=== PATIENT | female | born 1965 | race Caucasian/White ===

== ENCOUNTER → 2017-05-24 | Outpatient (CLI) | payer MEDICARE ==
[~2017-05-24] MED LIST: ACET325T14 PO; ALBU8.5H5 INH; ALPR0.5T6 PO; ASPI-621 PO; CYCL-259 PO; DOCU-131 PO; DOCU100C24 PO; FAMO-79 PO; FOLI-17 PO; GABA300C PO; GABA300C10 PO; GABA600T2 PO; LEVE500T53 PO; LEVO50TA PO; LORA10TA3 PO; MAGN400T7 PO; METH4TAB2 PO; MOME220A9 INH; NAPR250T PO; NICO-487 TD; OXYC-302 PO; OXYC10TA6 PO; OXYC20TA2 PO; OXYC5TAB3 PO; PANT40TA5 PO; PRAV20TA2 PO; PRAV40TA2 PO; QUET200T4 PO; SERT100T5 PO; SERT50TA5 PO; SULF1TAB24 PO; THIA100T6 PO; TRAZ100T15 PO
== END | disposition home or self-care (01) ==
LOC: ROC 07:31
PROVIDERS: ATTEND Radiology Radiation Oncology
DX: D05.91 Unspecified type of carcinoma in situ of right breast (principal); G89.3 Neoplasm related pain (acute) (chronic)
CPT/HCPCS: G0463

== ENCOUNTER → 2017-07-01 | Outpatient (CLI) | payer MEDICARE | END | disposition home or self-care (01) | LOC: CFH 10:48 | PROVIDERS: ATTEND Radiology Radiation Oncology | DX: D05.11 Intraductal carcinoma in situ of right breast (principal); N64.4 Mastodynia; Z92.3 Personal history of irradiation; Z85.3 Personal history of malignant neoplasm of breast | CPT/HCPCS: 76642; 77066 ==

== ENCOUNTER → 2017-11-29 | Outpatient (CLI) | payer MEDICARE, MEDICAID ==
[~2017-11-29] MED LIST changes: -THIA100T6 PO; +THIA100T67 PO; +TRAZ-136 PO; +TRAZ-137 PO; -TRAZ100T15 PO
[2017-11-29 09:18] LABS: BASOPHILS # (AUTO) 0.06 x10^3/uL (0-0.1); BASOPHILS % (AUTO) 1 % (0-1); EOSINOPHILS # (AUTO) 0.05 x10^3/uL (0-0.4); EOSINOPHILS % (AUTO) 1 % (1-7); LYMPHOCYTES # (AUTO) 2.31 x10^3/uL (1-3.4); LYMPHOCYTES % (AUTO) 24 % (22-44); MD NO; MEAN CORPUSCULAR HEMOGLOBIN 29.4 pg (27.0-34.8); MEAN CORPUSCULAR HGB CONC 32.8 g/dL (32.4-35.8); MEAN CORPUSCULAR VOLUME 89.5 fL (80-100); MEAN PLATELET VOLUME 6.9 fL (7.4-10.4); MONOCYTES # (AUTO) 0.73 x10^3/uL (0.2-0.8); MONOCYTES % (AUTO) 8 % (2-9); NEUTROPHILS # (AUTO) 6.48 x10^3/uL (1.8-6.8); NEUTROPHILS % (AUTO) 67 % (42-75); PLATELET COUNT 451 x10^3/uL (130-400); RED BLOOD COUNT 4.45 x10^6/uL (3.82-5.3); RED CELL DISTRIBUTION WIDTH 16.2 % (9.6-15.2)
[2017-11-29 09:24] LABS: HCT (SEDRATE) 39.9 % (34.6-47.8)
== END | disposition home or self-care (01) ==
LOC: LAB 08:55
PROVIDERS: ATTEND Orthopaedic Surgery
DX: M25.552 Pain in left hip (principal); I10 Essential (primary) hypertension; J44.9 Chronic obstructive pulmonary disease, unspecified; E78.5 Hyperlipidemia, unspecified; F32.9 Major depressive disorder, single episode, unspecified; I25.2 Old myocardial infarction; Z86.73 Personal history of transient ischemic attack (TIA), and cerebral infarction without residual deficits
CPT/HCPCS: 36415; 85025; 85651; 86140

== ENCOUNTER 2017-12-03 12:26 | Inpatient (IN) | payer MEDICARE, MEDICAID ==
[~2017-12-03] VITALS: Ht 177.8 cm; Wt 76.7 kg
[2017-12-03] MEDS ORDERED: SODIUM CHLORIDE FLUSH 10ML SYR IVF ONE (12:30)
[2017-12-03 12:56] LABS: BASOPHILS # (AUTO) 0.06 x10^3/uL (0-0.1); BASOPHILS % (AUTO) 1 % (0-1); EOSINOPHILS # (AUTO) 0.23 x10^3/uL (0-0.4); EOSINOPHILS % (AUTO) 3 % (1-7); LYMPHOCYTES # (AUTO) 1.93 x10^3/uL (1-3.4); LYMPHOCYTES % (AUTO) 24 % (22-44); MD NO; MEAN CORPUSCULAR HEMOGLOBIN 29.8 pg (27.0-34.8); MEAN CORPUSCULAR VOLUME 90.1 fL (80-100); MONOCYTES # (AUTO) 0.44 x10^3/uL (0.2-0.8); MONOCYTES % (AUTO) 5 % (2-9); NEUTROPHILS # (AUTO) 5.52 x10^3/uL (1.8-6.8); NEUTROPHILS % (AUTO) 67 % (42-75); PLATELET COUNT 484 x10^3/uL (130-400); RED BLOOD COUNT 4.57 x10^6/uL (3.82-5.3); RED CELL DISTRIBUTION WIDTH 16.4 % (9.6-15.2)
[2017-12-03] MEDS ORDERED: PLEASE ENTER HEIGHT AND WEIGHT MC SCH (13:00)
[2017-12-03 13:08] LABS: INTERNATIONAL NORMALIZED RATIO 1.1 (0.93-1.1); PROTHROMBIN TIME 11.3 Seconds (9.6-11.5)
[2017-12-03 13:10] LABS: ALANINE AMINOTRANSFERASE 19 U/L (12-78); ALBUMIN 3.7 g/dL (3.4-5.0); ANION GAP 7 mmol/L (5-15); CALCIUM 8.7 mg/dL (8.5-10.1); CHLORIDE 110 mmol/L (98-107); CREATININE 0.71 mg/dL (0.55-1.02); SALICYLATE LEVEL 4.9 mg/dL (2.8-20.0)
[2017-12-03 13:15] LABS: ALKALINE PHOSPHATASE 78 U/L (45-117); BILIRUBIN,TOTAL 0.9 mg/dL (0.2-1.0); TOTAL PROTEIN 7.4 g/dL (6.4-8.2); TROPONIN I < 0.015 ng/mL (0.000-0.045)
[2017-12-03 13:18] LABS: ACETAMINOPHEN < 2 mcg/mL (10-30)
[2017-12-03] MEDS ORDERED: ETOMIDATE 20 MG/10 ML IV ONE (13:30)
[2017-12-03] MEDS ORDERED: SUCCINYLCHOLINE 20 MG/ML, 10ML IVPush ONE (13:30)
[2017-12-03] MEDS: PROPOFOL 100 ML IV PRN ×2 (13:40→19:46)
[2017-12-03] MEDS ORDERED: OMNIPAQUE 350 MG/ML, 100ML BOTTLE ONE (14:14)
[2017-12-03] MEDS ORDERED: MIDAZOLAM 1 MG/ML, 2ML IVPush ONE (14:30)
[2017-12-03] MEDS ORDERED: VECURONIUM 10 MG IVPush ONE (14:30)
[2017-12-03] MEDS: SODIUM CHLORIDE 0.9% 1,000 ML IV SCH (14:39)
[2017-12-03] MEDS ORDERED: MIDAZOLAM HCL 50 MG in SODIUM CHLORIDE 0.9% 240 ML IV PRN (14:41)
[2017-12-03] MEDS ORDERED: SODIUM CHLORIDE 0.9% 1,000 ML IV ONE (14:55)
[2017-12-03] MEDS ORDERED: BISACODYL 10 MG SUPP PR PRN ×2 (15:00→22:30)
[2017-12-03] MEDS ORDERED: LABETALOL 5MG/ML, 20ML IV PRN (15:00)
[2017-12-03] MEDS ORDERED: LORazepam 2 MG/ML, 1ML IVPush PRN (15:00)
[2017-12-03] MEDS ORDERED: ENALAPRILAT 1.25 MG/ML, 2ML IV PRN (15:00)
[2017-12-03] MEDS ORDERED: SENNA/DOCUSATE TABLET PO PRN (15:00)
[2017-12-03] MEDS ORDERED: DOCUSATE 100 MG CAPSULE PO PRN (15:00)
[2017-12-03] MEDS ORDERED: ONDANSETRON 2MG/ML, 2ML IVPush PRN (15:00)
[2017-12-03] MEDS ORDERED: POLYETHYLENE GLYCOL 17 GM PACKET PO PRN (15:00)
[2017-12-03] MEDS ORDERED: SODIUM CHLORIDE FLUSH 10ML SYR IVF PRN (15:00)
[2017-12-03] MEDS ORDERED: PROPOFOL 100 ML IV ONE (16:07)
[2017-12-03 16:23] LABS: MICROSCOPIC NOT IND
[2017-12-03 16:31] LABS: AMPHETAMINE SCREEN, URINE Negative (Negative); BARBITURATE SCREEN, URINE Negative (Negative); BENZODIAZEPINE SCREEN, URINE Positive (Negative); CANNABINOID SCREEN, URINE Negative (Negative); COCAINE SCREEN, URINE Negative (Negative); CULTURE INDICATED? NO; METHADONE SCREEN, URINE Negative (Negative); OPIATE SCREEN, URINE Negative (Negative)
[2017-12-03] MEDS ORDERED: MIDAZOLAM 1 MG/ML, 5ML ONE (17:00)
[2017-12-03] MEDS ORDERED: ETOMIDATE 20 MG/10 ML ONE (17:00)
[2017-12-03] MEDS ORDERED: VECURONIUM 10 MG ONE (17:00)
[2017-12-03] MEDS ORDERED: PROPOFOL 10 MG/ML, 100ML IV ONE (17:00)
[2017-12-03] MEDS ORDERED: SUCCINYLCHOLINE 20 MG/ML, 10ML ONE (17:00)
[2017-12-03] MEDS: THIAMINE 200 MG, FOLIC ACID 1 MG, MVI ADULT 10 ML in SODIUM CHLORIDE 0.9% 1,000 ML IV SCH (17:03)
[2017-12-03] MEDS: ENOXAPARIN 40 MG/0.4 ML SQ SCH (17:52)
[2017-12-03] MEDS: ATORVASTATIN 80 MG TABLET PO SCH (21:13)
[2017-12-03] MEDS ORDERED: LIDOCAINE-MPF 1%, 2ML ENDO PRN (22:30)
[2017-12-03] MEDS: ALBUTEROL/IPRATROPIUM 2.5MG/0.5MG, 3 ML INLINE SCH (22:30)
[2017-12-03] MEDS ORDERED: SENNA/DOCUSATE TABLET NG PRN (22:30)
[2017-12-03] MEDS ORDERED: PHARMACY MAY ADJ FOR RENAL FX MC SCH (22:30)
[2017-12-03] MEDS ORDERED: SENNOSIDES 8.8 MG/5 ML ORAL SOL NG PRN (22:30)
[2017-12-03] MEDS ORDERED: FENTANYL PF 100 MCG/2ML IVPush PRN (22:30)
[2017-12-03] MEDS ORDERED: LACTULOSE 20 GM/30 ML UDC NG PRN (22:30)
[2017-12-04] MEDS: PROPOFOL 100 ML IV PRN ×2 (01:02→06:33)
[2017-12-04] MEDS: SODIUM CHLORIDE 0.9% 1,000 ML IV SCH ×3 (01:03→20:12)
[2017-12-04] MEDS: QUETIAPINE 25MG TABLET PO SCH ×4 (01:07→23:49)
[2017-12-04] MEDS: ALBUTEROL/IPRATROPIUM 2.5MG/0.5MG, 3 ML INLINE SCH ×2 (03:12→06:47)
[2017-12-04 04:00] VITALS: BP 136/82
[2017-12-04 04:51] LABS: ALANINE AMINOTRANSFERASE 18 U/L (12-78); ANION GAP 6 mmol/L (5-15); CHLORIDE 111 mmol/L (98-107)
[2017-12-04 04:56] LABS: BASOPHILS # (AUTO) 0.03 x10^3/uL (0-0.1); BASOPHILS % (AUTO) 0 % (0-1); EOSINOPHILS % (AUTO) 2 % (1-7); LYMPHOCYTES # (AUTO) 1.36 x10^3/uL (1-3.4); LYMPHOCYTES % (AUTO) 14 % (22-44); MD NO; MEAN CORPUSCULAR HGB CONC 33.6 g/dL (32.4-35.8); MEAN CORPUSCULAR VOLUME 89.5 fL (80-100); MEAN PLATELET VOLUME 7.3 fL (7.4-10.4); MONOCYTES # (AUTO) 0.52 x10^3/uL (0.2-0.8); MONOCYTES % (AUTO) 5 % (2-9); NEUTROPHILS # (AUTO) 7.74 x10^3/uL (1.8-6.8); NEUTROPHILS % (AUTO) 79 % (42-75); PLATELET COUNT 358 x10^3/uL (130-400); RED BLOOD COUNT 4.24 x10^6/uL (3.82-5.3); RED CELL DISTRIBUTION WIDTH 16.5 % (9.6-15.2)
[2017-12-04 04:58] LABS: ALKALINE PHOSPHATASE 68 U/L (45-117); BILIRUBIN,TOTAL 0.6 mg/dL (0.2-1.0); CHOL/HDL RATIO 3.1; CHOLESTEROL, TOTAL 175 mg/dL (140-239); CREATININE 0.54 mg/dL (0.55-1.02); HDL CHOL % 32 % (28-40); HDL CHOLESTEROL (DIRECT) 56 mg/dL (40-60); LDL CHOLESTEROL,CALCULATED 71 mg/dL (54-169); TOTAL PROTEIN 6.1 g/dL (6.4-8.2); TRIGLYCERIDES 239 mg/dL (50-200); VLDL CHOLESTEROL 48 mg/dL (0-25)
[2017-12-04 04:59] LABS: LDL/HDL RATIO 1.3 (0.5-3.0)
[2017-12-04 05:32] LABS: HEMOGLOBIN A1C 5.9 % (4.2-6.3)
[2017-12-04] MEDS ORDERED: PLEASE ENTER HEIGHT AND WEIGHT MC SCH (07:00)
[2017-12-04] MEDS: PANTOPROZOLE 40MG TABLET PO SCH (07:30)
[2017-12-04] MEDS ORDERED: ALBUTEROL SULFATE 2.5 MG/3 ML NPPB PRN (10:00)
[2017-12-04] MEDS: PANTOPRAZOLE 40 MG IV IV SCH (10:20)
[2017-12-04] MEDS: MAGNESIUM OXIDE 400 MG TABLET PO SCH (10:20)
[2017-12-04] MEDS: ASPIRIN 81 MG TABLET CHEW PO/NG SCH (10:21)
[2017-12-04] MEDS: LEVOTHYROXINE 50 MCG TABLET PO SCH (10:21)
[2017-12-04] MEDS: SERTRALINE 50MG TABLET PO SCH (10:21)
[2017-12-04] MEDS: THIAMINE 200 MG, FOLIC ACID 1 MG, MVI ADULT 10 ML in SODIUM CHLORIDE 0.9% 1,000 ML IV SCH (10:21)
[2017-12-04] MEDS: QUETIAPINE 200 MG TABLET PO SCH (10:21)
[2017-12-04] MEDS ORDERED: POTASSIUM CHLORIDE 10% 40 MEQ/30 ML UDC PO ONE (10:30)
[2017-12-04] MEDS: LIDODERM 5% PATCH TD PRN ×2 (14:49→20:23)
[2017-12-04] MEDS: ENOXAPARIN 40 MG/0.4 ML SQ SCH (15:46)
[2017-12-04] MEDS: ACETAMINOPHEN 325 MG TABLET PO PRN (15:46)
[2017-12-04] MEDS: ATORVASTATIN 80 MG TABLET PO SCH (20:24)
[2017-12-05 04:00] VITALS: BP 102/68
[2017-12-05 04:19] LABS: BASOPHILS # (AUTO) 0.01 x10^3/uL (0-0.1); BASOPHILS % (AUTO) 0 % (0-1); EOSINOPHILS # (AUTO) 0.18 x10^3/uL (0-0.4); EOSINOPHILS % (AUTO) 1 % (1-7); LYMPHOCYTES # (AUTO) 1.58 x10^3/uL (1-3.4); LYMPHOCYTES % (AUTO) 12 % (22-44); MD NO; MEAN CORPUSCULAR VOLUME 90.8 fL (80-100); MEAN PLATELET VOLUME 7.5 fL (7.4-10.4); MONOCYTES # (AUTO) 0.69 x10^3/uL (0.2-0.8); MONOCYTES % (AUTO) 5 % (2-9); NEUTROPHILS # (AUTO) 10.55 x10^3/uL (1.8-6.8); NEUTROPHILS % (AUTO) 81 % (42-75); PLATELET COUNT 291 x10^3/uL (130-400); RED BLOOD COUNT 3.86 x10^6/uL (3.82-5.3); RED CELL DISTRIBUTION WIDTH 15.7 % (9.6-15.2)
[2017-12-05 04:29] LABS: ALANINE AMINOTRANSFERASE 19 U/L (12-78); ALKALINE PHOSPHATASE 64 U/L (45-117); BILIRUBIN,TOTAL 0.6 mg/dL (0.2-1.0); CREATININE 0.62 mg/dL (0.55-1.02); TOTAL PROTEIN 5.6 g/dL (6.4-8.2)
[2017-12-05 04:39] LABS: CHLORIDE 112 mmol/L (98-107)
[2017-12-05 04:40] LABS: ALBUMIN 2.5 g/dL (3.4-5.0); ANION GAP 8 mmol/L (5-15); CALCIUM 7.7 mg/dL (8.5-10.1)
[2017-12-05] MEDS: SODIUM CHLORIDE 0.9% 1,000 ML IV SCH (05:24)
[2017-12-05] MEDS: QUETIAPINE 25MG TABLET PO SCH (07:30)
[2017-12-05] MEDS: MAGNESIUM OXIDE 400 MG TABLET PO SCH (08:06)
[2017-12-05] MEDS: SERTRALINE 50MG TABLET PO SCH (08:06)
[2017-12-05] MEDS: LEVOTHYROXINE 50 MCG TABLET PO SCH (08:06)
[2017-12-05] MEDS: ACETAMINOPHEN 325 MG TABLET PO PRN (08:06)
[2017-12-05] MEDS: PANTOPROZOLE 40MG TABLET PO SCH (08:06)
[2017-12-05] MEDS: ASPIRIN 81 MG TABLET CHEW PO/NG SCH (08:06)
[2017-12-05] MEDS: PANTOPRAZOLE 40 MG IV IV SCH (08:08)
[2017-12-05] MEDS: QUETIAPINE 200 MG TABLET PO SCH (08:08)
== END 2017-12-05 12:01 | disposition home or self-care (01) | DRG 208 ==
LOC: ED 14:38 → EDIP 14:39 → ED 15:00 → CCU 16:22
PROVIDERS: ADMIT Hospitalist; ATTEND Hospitalist
PROC: 5A1935Z Respiratory Ventilation, Less than 24 Consecutive Hours (ICD-10-PCS; principal; 2017-12-03)
PROC: 0BH17EZ Insertion of Endotracheal Airway into Trachea, Via Natural or Artificial Opening (ICD-10-PCS; 2017-12-03)
DX: J96.00 Acute respiratory failure, unspecified whether with hypoxia or hypercapnia (principal); J69.0 Pneumonitis due to inhalation of food and vomit; G92 Toxic encephalopathy; Z99.11 Dependence on respirator [ventilator] status; I69.354 Hemiplegia and hemiparesis following cerebral infarction affecting left non-dominant side; J98.11 Atelectasis; I25.10 Atherosclerotic heart disease of native coronary artery without angina pectoris; I10 Essential (primary) hypertension; D72.829 Elevated white blood cell count, unspecified; E03.9 Hypothyroidism, unspecified; F32.9 Major depressive disorder, single episode, unspecified; G89.29 Other chronic pain; E78.00 Pure hypercholesterolemia, unspecified; E78.5 Hyperlipidemia, unspecified; J44.9 Chronic obstructive pulmonary disease, unspecified; G40.909 Epilepsy, unspecified, not intractable, without status epilepticus; Z82.49 Family history of ischemic heart disease and other diseases of the circulatory system; Z85.3 Personal history of malignant neoplasm of breast; Z87.01 Personal history of pneumonia (recurrent); I25.2 Old myocardial infarction; Z90.710 Acquired absence of both cervix and uterus; Z90.49 Acquired absence of other specified parts of digestive tract; Z90.89 Acquired absence of other organs
CPT/HCPCS: 31500; 36415; 36600; 70450; 70496; 70498; 70551; 71045; 80047; 80053; 80061; 80307; 80329; 81003; 82140; 82803; 83036; 83735; 84100; 84478; 84484; 85014; 85018; 85025; 85610; 85730; 87070; 87081; 87107; 87205; 93005; 93306; 94002; 94003; 94640; 96374; 96375; 99291; J1650; J2250; J2704; J3411; J7620; Q9967; C9113; G0480; J0330; J7030; J7050

== ENCOUNTER 2017-12-31 17:48 | Emergency (ER) | payer MEDICARE, MEDICAID ==
[~2017-12-31] VITALS: Ht 175.3 cm; Wt 75.0 kg
[~2017-12-31 17:48] MED LIST changes: +DOCU-193 PO; -DOCU100C24 PO
[2017-12-31 18:29] LABS: BASOPHILS # (AUTO) 0.04 x10^3/uL (0-0.1); BASOPHILS % (AUTO) 0 % (0-1); EOSINOPHILS # (AUTO) 0.13 x10^3/uL (0-0.4); EOSINOPHILS % (AUTO) 1 % (1-7); LYMPHOCYTES # (AUTO) 2.19 x10^3/uL (1-3.4); LYMPHOCYTES % (AUTO) 24 % (22-44); MD NO; MEAN CORPUSCULAR HEMOGLOBIN 30.7 pg (27.0-34.8); MEAN CORPUSCULAR HGB CONC 33.3 g/dL (32.4-35.8); MEAN CORPUSCULAR VOLUME 92.1 fL (80-100); MONOCYTES # (AUTO) 0.47 x10^3/uL (0.2-0.8); MONOCYTES % (AUTO) 5 % (2-9); NEUTROPHILS # (AUTO) 6.39 x10^3/uL (1.8-6.8); NEUTROPHILS % (AUTO) 69 % (42-75); PLATELET COUNT 484 x10^3/uL (130-400); RED BLOOD COUNT 4.69 x10^6/uL (3.82-5.3); RED CELL DISTRIBUTION WIDTH 16.5 % (9.6-15.2)
[2017-12-31 18:39] LABS: ALBUMIN 3.8 g/dL (3.4-5.0); ANION GAP 12 mmol/L (5-15); CALCIUM 8.5 mg/dL (8.5-10.1); CHLORIDE 109 mmol/L (98-107); CREATININE 0.75 mg/dL (0.55-1.02)
[2017-12-31 18:43] LABS: TROPONIN I < 0.015 ng/mL (0.000-0.045)
[2017-12-31] MEDS ORDERED: METHOCARBAMOL 750 MG TABLET ONE (19:51)
[2017-12-31] MEDS ORDERED: KETOROLAC 30 MG/1 ML ONE (19:51)
[2017-12-31] MEDS ORDERED: METHOCARBAMOL 750 MG TABLET PO ONE (20:00)
[2017-12-31] MEDS ORDERED: KETOROLAC 30 MG/1 ML IM ONE (20:00)
[2017-12-31 21:42] LABS: MICROSCOPIC NOT IND
[2017-12-31 21:46] LABS: CULTURE INDICATED? NO
[2017-12-31 22:37] VITALS: BP 129/82
== END 2017-12-31 22:40 | disposition home or self-care (01) ==
LOC: ED 22:08
DX: M51.26 Other intervertebral disc displacement, lumbar region (principal); J44.9 Chronic obstructive pulmonary disease, unspecified; G40.909 Epilepsy, unspecified, not intractable, without status epilepticus; E03.9 Hypothyroidism, unspecified; E78.00 Pure hypercholesterolemia, unspecified; E78.5 Hyperlipidemia, unspecified; I10 Essential (primary) hypertension; G43.909 Migraine, unspecified, not intractable, without status migrainosus; I25.2 Old myocardial infarction; Z90.49 Acquired absence of other specified parts of digestive tract; Z86.73 Personal history of transient ischemic attack (TIA), and cerebral infarction without residual deficits
CPT/HCPCS: 36415; 71046; 80048; 81003; 82040; 84484; 85025; 93005; 96372; 99285; J1885

== ENCOUNTER → 2018-01-10 | Outpatient (CLI) | payer MEDICARE, MEDICAID | END | disposition home or self-care (01) | LOC: CFH 10:10 | PROVIDERS: ATTEND Physician Assistant | DX: Z13.820 Encounter for screening for osteoporosis (principal); M85.88 Other specified disorders of bone density and structure, other site; N95.9 Unspecified menopausal and perimenopausal disorder | CPT/HCPCS: 77080 ==

== ENCOUNTER → 2018-01-24 | Outpatient (CLI) | payer MEDICARE, MEDICAID | END | disposition home or self-care (01) | LOC: ROC 07:13 | PROVIDERS: ATTEND Radiology Radiation Oncology | DX: D05.11 Intraductal carcinoma in situ of right breast (principal) | CPT/HCPCS: G0463 ==

== ENCOUNTER → 2018-02-08 | Outpatient (CLI) | payer MEDICARE, MEDICAID ==
[~2018-02-08] MED LIST changes: +REGADENOSON 0.4 MG/5 ML SYRINGE ONE
== END | disposition home or self-care (01) ==
LOC: CFH 08:39
PROVIDERS: ATTEND Internal Medicine Cardiovascular Disease
DX: I10 Essential (primary) hypertension (principal); I42.9 Cardiomyopathy, unspecified
CPT/HCPCS: 78452; 93017; A9502; J2785

== ENCOUNTER 2018-10-20 11:00 | Outpatient (CLI) | payer MEDICARE, MEDICAID ==
[~2018-10-20 11:00] MED LIST changes: -ASPI-621 PO; +ASPI81TA45 PO; -GABA600T2 PO; +GABA600T7 PO; +LORA-247 PO; -LORA10TA3 PO; -REGADENOSON 0.4 MG/5 ML SYRINGE ONE; +SERT100T32 PO; -SERT100T5 PO; +SERT50TA28 PO; -SERT50TA5 PO; -TRAZ-136 PO; +TRAZ50TA66 PO
== END 2018-10-20 23:59 | disposition home or self-care (01) ==
LOC: CFH 11:00
PROVIDERS: ATTEND Physician Assistant
DX: M50.322 Other cervical disc degeneration at C5-C6 level (principal); M47.892 Other spondylosis, cervical region
CPT/HCPCS: 72040

== ENCOUNTER 2018-11-04 12:18 | Outpatient (CLI) | payer MEDICARE, MEDICAID | END 2018-11-04 23:59 | disposition home or self-care (01) | LOC: CFH 12:18 | PROVIDERS: ATTEND Radiology Radiation Oncology | DX: N64.4 Mastodynia (principal) | CPT/HCPCS: 77066; G0279 ==

== ENCOUNTER 2019-07-25 10:17 | Emergency (ER) | payer MEDICAID, MEDICARE ==
[~2019-07-25] VITALS: Ht 175.3 cm; Wt 80.0 kg
[~2019-07-25 10:17] MED LIST changes: -MAGN400T7 PO; +MAGN400T9 PO; -TRAZ-137 PO; +TRAZ-175 PO
--- NOTE | 2019-07-25 10:30 | NUR ---
WASH CREW PERSON: THIS RN PRESENT DURING EKG IN TRIAGE WITH TECH.
[2019-07-25] MEDS ORDERED: LORazepam 1MG TABLET ONE (11:00)
[2019-07-25] MEDS ORDERED: L.E.T SOLUTION TP ONE ×2 (11:00→11:06)
[2019-07-25] MEDS ORDERED: DIPH,PERTUSS(ACELL),TET VAC/PF 0.5 ML IM-VACC ONE ×2 (11:00→11:06)
[2019-07-25] MEDS ORDERED: LORazepam 1MG TABLET PO ONE (11:00)
--- NOTE | 2019-07-25 11:22 | NUR ---
LET SOLUTION HAS HAD APPROX 15 MIN SOAK TIME. MEDS/MAR. MONITOR IN PLACE.
[2019-07-25 12:30] LABS: BASOPHILS # (AUTO) 0.03 x10^3/uL (0-0.1); BASOPHILS % (AUTO) 0 % (0-1); EOSINOPHILS # (AUTO) 0.61 x10^3/uL (0-0.4); EOSINOPHILS % (AUTO) 7 % (1-7); LYMPHOCYTES % (AUTO) 25 % (22-44); MD NO; MEAN CORPUSCULAR HEMOGLOBIN 31.5 pg (27.0-34.8); MEAN CORPUSCULAR HGB CONC 33.8 g/dL (32.4-35.8); MEAN CORPUSCULAR VOLUME 93.3 fL (80-100); MEAN PLATELET VOLUME 6.8 fL (7.4-10.4); MONOCYTES # (AUTO) 0.53 x10^3/uL (0.2-0.8); MONOCYTES % (AUTO) 6 % (2-9); NEUTROPHILS # (AUTO) 5.36 x10^3/uL (1.8-6.8); NEUTROPHILS % (AUTO) 61 % (42-75); PLATELET COUNT 473 x10^3/uL (130-400); RED BLOOD COUNT 4.09 x10^6/uL (3.82-5.3); RED CELL DISTRIBUTION WIDTH 13.8 % (9.6-15.2)
[2019-07-25] MEDS ORDERED: KETOROLAC 30 MG/1 ML ONE (12:44)
[2019-07-25 12:46] LABS: ALBUMIN 3.7 g/dL (3.4-5.0); ANION GAP 5 mmol/L (5-15); CALCIUM 8.4 mg/dL (8.5-10.1); CHLORIDE 111 mmol/L (98-107); CREATININE 0.75 mg/dL (0.55-1.02)
[2019-07-25 12:49] LABS: TROPONIN I < 0.015 ng/mL (0.000-0.045)
[2019-07-25] MEDS ORDERED: KETOROLAC 30 MG/1 ML IM ONE (13:00)
[2019-07-25 13:33] VITALS: BP 141/90
== END 2019-07-25 13:35 | disposition home or self-care (01) ==
LOC: ED 10:36
DX: S51.812A Laceration without foreign body of left forearm, initial encounter (principal); J44.1 Chronic obstructive pulmonary disease with (acute) exacerbation; F41.1 Generalized anxiety disorder; F17.210 Nicotine dependence, cigarettes, uncomplicated; G43.909 Migraine, unspecified, not intractable, without status migrainosus; I10 Essential (primary) hypertension; W01.0XXA Fall on same level from slipping, tripping and stumbling without subsequent striking against object, initial encounter; Y93.89 Activity, other specified; Y92.89 Other specified places as the place of occurrence of the external cause; Y99.8 Other external cause status
CPT/HCPCS: 36415; 71045; 80048; 82040; 83880; 84484; 85025; 90471; 90715; 93005; 96374; 99285; J1885

== ENCOUNTER 2019-07-26 18:39 | Emergency (ER) | payer MEDICARE ==
[~2019-07-26] VITALS: Ht 167.6 cm; Wt 68.0 kg
[2019-07-26 18:43] VITALS: BP 151/95
--- NOTE | 2019-07-26 18:55 | NUR ---
pt munwilling to sit still and seems anxious. [employer] in room with pt, pt in pd custody. pt has cut on left arm. [facility] gave 50 of Fentanyl enroute to er for pt pain
--- NOTE | 2019-07-26 19:01 | NUR ---
report given to CATHERINE WILKERSON
== END 2019-07-26 19:05 | disposition home or self-care (01) ==
LOC: ED 18:46
DX: S01.01XA Laceration without foreign body of scalp, initial encounter (principal); F10.129 Alcohol abuse with intoxication, unspecified; R07.89 Other chest pain; R00.0 Tachycardia, unspecified; E78.00 Pure hypercholesterolemia, unspecified; E78.5 Hyperlipidemia, unspecified; G40.909 Epilepsy, unspecified, not intractable, without status epilepticus; J44.9 Chronic obstructive pulmonary disease, unspecified; I25.2 Old myocardial infarction; F17.210 Nicotine dependence, cigarettes, uncomplicated; Y90.0 Blood alcohol level of less than 20 mg/100 ml; J44.1 Chronic obstructive pulmonary disease with (acute) exacerbation; Z86.73 Personal history of transient ischemic attack (TIA), and cerebral infarction without residual deficits; X58.XXXA Exposure to other specified factors, initial encounter; Y93.89 Activity, other specified; Y92.89 Other specified places as the place of occurrence of the external cause; Y99.8 Other external cause status
CPT/HCPCS: 93005; 99283

== ENCOUNTER 2019-09-28 07:20 | Outpatient (CLI) | payer MEDICARE | END 2019-09-28 23:59 | disposition home or self-care (01) | LOC: ROC 07:20 | PROVIDERS: ATTEND Radiology Radiation Oncology | DX: Z08 Encounter for follow-up examination after completed treatment for malignant neoplasm (principal); D05.11 Intraductal carcinoma in situ of right breast | CPT/HCPCS: G0463 ==

== ENCOUNTER → 2019-11-15 | Outpatient (CLI) | payer MEDICARE, MEDICAID ==
[2019-11-15 13:40] LABS: ALBUMIN 3.7 g/dL (3.4-5.0); ANION GAP 8 mmol/L (5-15); CALCIUM 8.5 mg/dL (8.5-10.1); CHLORIDE 106 mmol/L (98-107)
[2019-11-15 13:54] LABS: ALANINE AMINOTRANSFERASE 14 U/L (12-78); ALKALINE PHOSPHATASE 72 U/L (45-117); BILIRUBIN,TOTAL 0.8 mg/dL (0.2-1.0); CHOL/HDL RATIO 1.7; CHOLESTEROL, TOTAL 101 mg/dL (140-239); CREATININE 0.75 mg/dL (0.55-1.02); HDL CHOL % 57 % (28-40); HDL CHOLESTEROL (DIRECT) 58 mg/dL (40-60); LDL CHOLESTEROL,CALCULATED 30 mg/dL (54-169); LDL/HDL RATIO 0.5 (0.5-3.0); T4 (THYROXINE) 8.3 mcg/dL (4.8-13.9); TOTAL PROTEIN 6.6 g/dL (6.4-8.2); TRIGLYCERIDES 66 mg/dL (50-200); VLDL CHOLESTEROL 13 mg/dL (0-25)
== END | disposition home or self-care (01) ==
LOC: LAB 13:13
PROVIDERS: ATTEND Physician Assistant Medical
DX: E78.2 Mixed hyperlipidemia (principal); I10 Essential (primary) hypertension
CPT/HCPCS: 36415; 80053; 80061; 84436; 84443; 84481

== ENCOUNTER 2020-05-16 17:04 | Outpatient (CLI) | payer MEDICARE, MEDICAID ==
[~2020-05-16 17:04] MED LIST changes: -ALPR0.5T6 PO; +ALPR0.5T93 PO; -CYCL-259 PO; +CYCL10TA2 PO; -FOLI-17 PO; +FOLI1TAB32 PO; -NICO-487 TD; +NICO-587 TD; -OXYC-302 PO; +OXYC1TAB14 PO; -OXYC5TAB3 PO; +OXYC5TAB98 PO; -PANT40TA5 PO; +PANT40TA6 PO
== END 2020-05-16 23:59 | disposition home or self-care (01) ==
LOC: LAB 17:04
PROVIDERS: ATTEND Family Medicine
DX: D32.9 Benign neoplasm of meninges, unspecified (principal); G89.4 Chronic pain syndrome
CPT/HCPCS: 80307

== ENCOUNTER 2020-07-25 05:39 | Day surgery (SDC) | payer MEDICARE, MEDICAID ==
[~2020-07-25] VITALS: Ht 175.3 cm; Wt 75.0 kg
[~2020-07-25 05:39] MED LIST changes: +ALBU6.7H8 INH; +AMIT25TA PO; +ATOR20TA86 PO; +LISI-606 PO; +OMEP40CA42 PO; +SERT-238 PO; +UMEC1DIS PO
[2020-07-25 06:23] VITALS: BP 142/94
[2020-07-25] MEDS ORDERED: CHLORHEXIDINE 15 ML UDC PO ONE (06:30)
[2020-07-25] MEDS ORDERED: LACTATED RINGERS 1,000 ML IV SCH (06:30)
[2020-07-25] MEDS ORDERED: LIDOCAINE-MPF 1%, 2ML INFIL ONE (06:30)
[2020-07-25] MEDS ORDERED: CHLORHEXIDINE 15 ML UDC ONE (06:35)
[2020-07-25 06:41] LABS: AMPHETAMINE SCREEN, URINE Negative (Negative); BARBITURATE SCREEN, URINE Negative (Negative); BENZODIAZEPINE SCREEN, URINE Negative (Negative); CANNABINOID SCREEN, URINE Negative (Negative); COCAINE SCREEN, URINE Positive (Negative); METHADONE SCREEN, URINE Negative (Negative); OPIATE SCREEN, URINE Negative (Negative)
[2020-07-25] MEDS ORDERED: EPINEPHRINE 1 MG/ML, 1ML ONE (07:04)
[2020-07-25] MEDS ORDERED: BUPIVACAINE/PF 0.5% ONE (07:04)
[2020-07-25] MEDS ORDERED: BACITRACIN 50,000 UNIT ONE (07:04)
[2020-07-25] MEDS ORDERED: FENTANYL PF 250 MCG/5ML ONE (07:20)
[2020-07-25] MEDS ORDERED: MIDAZOLAM 1 MG/ML, 2ML ONE (07:20)
[2020-07-25] MEDS ORDERED: HYDROmorphone 1 MG/ML, 1ML INJ IVPush PRN (07:30)
[2020-07-25] MEDS ORDERED: FENTANYL PF 100 MCG/2ML IV PRN (07:30)
[2020-07-25] MEDS ORDERED: ACETAMINOPHEN 325 MG TABLET PO PRN (07:30)
[2020-07-25] MEDS ORDERED: OXYcodone 5 MG/5 ML ORAL.SOL UDC PO PRN (07:30)
[2020-07-25] MEDS ORDERED: ONDANSETRON 2MG/ML, 2ML IVPush PRN (07:30)
[2020-07-25] MEDS ORDERED: hydrALAzine 20 MG/ML, 1ML IV PRN (07:30)
[2020-07-25] MEDS ORDERED: LORazepam 2 MG/ML, 1ML IVPush PRN (07:30)
[2020-07-25] MEDS ORDERED: MEPERIDINE/PF 25MG/0.5ML IVPush PRN (07:30)
[2020-07-25] MEDS ORDERED: METHOCARBAMOL 1,000 MG in DEXTROSE 5% 100 ML IV PRN (07:30)
[2020-07-25] MEDS ORDERED: PROMETHAZINE 25 MG/ML, 1ML IVPush PRN (07:30)
[2020-07-25] MEDS ORDERED: LABETALOL 5MG/ML, 20ML IV PRN (07:30)
[2020-07-25] MEDS ORDERED: DIAZEPAM 5 MG/ML, 2ML IVPush PRN (07:30)
[2020-07-25] MEDS ORDERED: DEXAMETHASONE 4 MG/ML, 1ML ONE ×3 (07:42)
== END 2020-07-25 08:10 | disposition home or self-care (01) ==
LOC: OUT 05:39
PROVIDERS: ATTEND Neurological Surgery
DX: M47.12 Other spondylosis with myelopathy, cervical region (principal); Z53.8 Procedure and treatment not carried out for other reasons; M47.22 Other spondylosis with radiculopathy, cervical region; M48.02 Spinal stenosis, cervical region; I25.2 Old myocardial infarction; I10 Essential (primary) hypertension; G43.909 Migraine, unspecified, not intractable, without status migrainosus; F17.210 Nicotine dependence, cigarettes, uncomplicated; Z79.899 Other long term (current) drug therapy; Z90.49 Acquired absence of other specified parts of digestive tract; Z90.710 Acquired absence of both cervix and uterus; Z98.890 Other specified postprocedural states; Z82.61 Family history of arthritis; Z80.9 Family history of malignant neoplasm, unspecified
CPT/HCPCS: 36415; 80307; 86850; 86900; J0171; J1100; J2250; J3010

== ENCOUNTER 2020-08-17 14:03 | Inpatient (IN) | payer MEDICARE, MEDICAID ==
[~2020-08-17] VITALS: Ht 175.3 cm; Wt 81.2 kg
[~2020-08-17 14:03] MED LIST changes: +SULF-23 PO; -SULF1TAB24 PO
--- NOTE | 2020-08-17 14:16 | NUR ---
BIB [facility]. PT FOUND LAYING ON SIDEWALK IN FRONT OF [place]. PT C/O DIFFICULT SPEAKING X2 WEEKS, OUT OF AMYTRIPTOLINE X2 WEEKS. HX: BRAIN TUMOR. COCAINE 3 DAYS AGO. FOOD OPERATIONS MANAGER [facility]: PIV 20G LEFT WRIST, 25MG BENADRYL, 4MG ZOFRAN. PT CONNECTED TO MONITORING. CALL LIGHT INREA Addendum: 08/17/20 at 1448 by [email or web address] PT CONNECTED TO MONITORING. EKG COMPLETE. PT MUMBLING WHEN ANSWERING QUESTIONS, SOMETIMES DIFFICULT TO UNDERSTAND. PT ASKING FOR CIGARRETTES. PT BELONGINGS PLACED IN BELONGINS BAG AND LEFT IN ROOM. PT RESTING ON GURNEY. CALL LIGHT IN REACH.
--- NOTE | 2020-08-17 14:25 | NUR ---
PT GOING TO CT. HYDRAULIC MINER STATES PIV IN LEFT WRIST OK TO USE FOR CTA.
--- NOTE | 2020-08-17 14:28 | NUR ---
CODE NEURO PAGED [id number]
[2020-08-17] MEDS ORDERED: SODIUM CHLORIDE FLUSH 10ML SYR IVF ONE (14:30)
--- NOTE | 2020-08-17 14:47 | NUR ---
ON RETURN FROM CT, [facility] STROKE ASSESSMENT COMPLETED BY LAUREN WILKERSON AND RECORDED ON CODE NEURO FLOW SHEET. PT NOTED TO HAVE RIGHT SIDED WEAKNESS. PT STATES THAT HER NEUROLOGIST IS DR BOBBY AND THAT SHE IS SCHEDULED TO SEE HIM END OF THIS MONTH. PT STATES THAT SHE WILL BE HAVING SURGERY ON HER CERVICAL SPINE. PT STATES SHE HAS HAD RIGHT SIDED HEAVINESS FOR A LONG TIME AND THAT THE NEUROSURGEON BELIEVES IT IS BECAUSE OF HER CERVICAL SPINE. PT STATES THAT SHE WAS WAITING FOR A BUS TO GET TO [facility] WHEN SHE STARTED NOT FEELING WELL.
--- NOTE | 2020-08-17 14:50 | NUR ---
REPORT GIVEN TO [place] WILKERSON.
[2020-08-17] MEDS ORDERED: OMNIPAQUE 350 MG/ML, 75ML BOTTLE ONE (15:05)
[2020-08-17 15:08] LABS: ALANINE AMINOTRANSFERASE 17 U/L (12-78); ALBUMIN 3.3 g/dL (3.4-5.0); ANION GAP 8 mmol/L (5-15); BASOPHILS % (AUTO) 1 % (0-1); CALCIUM 8.2 mg/dL (8.5-10.1); CHLORIDE 111 mmol/L (98-107); CREATININE 0.57 mg/dL (0.55-1.02); EOSINOPHILS % (AUTO) 4 % (1-7); LYMPHOCYTES % (AUTO) 30 % (22-44); MEAN CORPUSCULAR HEMOGLOBIN 31.1 pg (27.0-34.8); MEAN PLATELET VOLUME 6.4 fL (7.4-10.4); MONOCYTES % (AUTO) 7 % (2-9); NEUTROPHILS % (AUTO) 58 % (42-75); PLATELET COUNT 475 x10^3/uL (130-400); RED CELL DISTRIBUTION WIDTH 14.2 % (9.6-15.2)
[2020-08-17 15:09] LABS: MD NO
[2020-08-17 15:10] LABS: ALKALINE PHOSPHATASE 80 U/L (45-117); BILIRUBIN,TOTAL 0.4 mg/dL (0.2-1.0); TOTAL PROTEIN 6.2 g/dL (6.4-8.2)
--- NOTE | 2020-08-17 15:44 | NUR ---
URINE COLLECTED VIA STRAIGHT CATH AND TAKEN TO LAB. ABOUT 500ML URINE DRAINED FROM BLADDER. PT POSITIONED FOR COMFORT. CALL LIGHT IN REACH. FALL PRECAUTIONS IN PLACE.
[2020-08-17 16:06] LABS: AMPHETAMINE SCREEN, URINE Negative (Negative); BARBITURATE SCREEN, URINE Negative (Negative); BENZODIAZEPINE SCREEN, URINE Negative (Negative); CANNABINOID SCREEN, URINE Negative (Negative); COCAINE SCREEN, URINE Positive (Negative); METHADONE SCREEN, URINE Negative (Negative); OPIATE SCREEN, URINE Negative (Negative)
--- NOTE | 2020-08-17 16:16 | NUR ---
ALL RESULTS ARE BACK AT THIS TIME. CHART UP FOR RECHECK.
--- NOTE | 2020-08-17 16:56 | NUR ---
PT SLEEPING ON GURNEY. RESP EVEN AND UNLABORED. PT CONNECTED TO MONITORING.
--- NOTE | 2020-08-17 17:35 | NUR ---
REPORT GIVEN TO NYDIA WILKERSON. PT RTG TO ROOM [id number]
[2020-08-17] MEDS ORDERED: ALBUTEROL HFA 90 MCG/SPRAY INH PRN (18:30)
[2020-08-17] MEDS ORDERED: ENALAPRILAT 1.25 MG/ML, 2ML IVPush PRN (18:30)
[2020-08-17] MEDS ORDERED: hydrALAzine 20 MG/ML, 1ML IVPush PRN (18:30)
[2020-08-17] MEDS ORDERED: DIPHENHYDRAMINE 25 MG CAPSULE PO PRN (18:30)
[2020-08-17] MEDS ORDERED: LABETALOL 5MG/ML, 20ML IVPush PRN (18:30)
[2020-08-17] MEDS ORDERED: ONDANSETRON 2MG/ML, 2ML IVPush PRN (18:30)
[2020-08-17 18:41] VITALS: BP 108/74
[2020-08-17] MEDS ORDERED: FAMOTIDINE 20 MG/2 ML IVPush SCH (21:00)
[2020-08-17] MEDS ORDERED: MELATONIN 5 MG TABLET PO PRN (21:00)
[2020-08-17] MEDS: ATORVASTATIN 20 MG TABLET PO SCH (22:22)
[2020-08-17] MEDS: AMITRIPTYLINE 25 MG TABLET PO SCH (22:22)
[2020-08-17] MEDS: GABAPENTIN 300 MG CAPSULE PO SCH (22:22)
[2020-08-17] MEDS: SODIUM CHLORIDE FLUSH 10ML SYR IVF SCH (22:23)
[2020-08-17] MEDS ORDERED: CYCL10TA2 PO (23:05)
[2020-08-18 01:15] VITALS: BP 115/59
[2020-08-18 05:10] LABS: MICROSCOPIC NOT IND
[2020-08-18] MEDS: OMEPRAZOLE 20 MG CAPSULE.DR PO SCH (05:20)
[2020-08-18 05:31] LABS: INTERNATIONAL NORMALIZED RATIO 1.11 (0.93-1.1); PROTHROMBIN TIME 11.9 Seconds (9.6-11.5)
[2020-08-18 05:36] LABS: CHLORIDE 111 mmol/L (98-107)
[2020-08-18 05:44] LABS: BASOPHILS % (AUTO) 1 % (0-1); EOSINOPHILS % (AUTO) 6 % (1-7); LYMPHOCYTES % (AUTO) 21 % (22-44); MEAN CORPUSCULAR HEMOGLOBIN 31.3 pg (27.0-34.8); MEAN CORPUSCULAR HGB CONC 33.6 g/dL (32.4-35.8); MEAN PLATELET VOLUME 6.6 fL (7.4-10.4); MONOCYTES % (AUTO) 5 % (2-9); NEUTROPHILS % (AUTO) 67 % (42-75); PLATELET COUNT 423 x10^3/uL (130-400); RED BLOOD COUNT 3.81 x10^6/uL (3.82-5.3); RED CELL DISTRIBUTION WIDTH 14.5 % (9.6-15.2)
[2020-08-18 05:48] LABS: MD NO
[2020-08-18 05:52] LABS: ALANINE AMINOTRANSFERASE 17 U/L (12-78); ALBUMIN 3.3 g/dL (3.4-5.0); ALKALINE PHOSPHATASE 79 U/L (45-117); ANION GAP 4 mmol/L (5-15); BILIRUBIN,TOTAL 0.4 mg/dL (0.2-1.0); CALCIUM 8.2 mg/dL (8.5-10.1); CHOL/HDL RATIO 2.3; CHOLESTEROL, TOTAL 122 mg/dL (140-239); CREATININE 0.69 mg/dL (0.55-1.02); HDL CHOL % 43 % (28-40); HDL CHOLESTEROL (DIRECT) 52 mg/dL (40-60); LDL CHOLESTEROL,CALCULATED 51 mg/dL (54-169); TOTAL PROTEIN 6.6 g/dL (6.4-8.2); TRIGLYCERIDES 95 mg/dL (50-200); VLDL CHOLESTEROL 19 mg/dL (0-25)
[2020-08-18 07:50] VITALS: BP 122/85
[2020-08-18] MEDS: SENNA/DOCUSATE TABLET PO SCH (09:00)
[2020-08-18] MEDS: GABAPENTIN 300 MG CAPSULE PO SCH ×3 (09:38→21:08)
[2020-08-18] MEDS: SERTRALINE 100MG TABLET PO SCH (09:38)
[2020-08-18] MEDS: SODIUM CHLORIDE FLUSH 10ML SYR IVF SCH ×2 (09:38→21:08)
[2020-08-18] MEDS: MAGNESIUM OXIDE 400 MG TABLET PO SCH (09:39)
[2020-08-18] MEDS ORDERED: LORazepam 1MG TABLET PO ONE (13:30)
[2020-08-18 14:00] VITALS: BP 126/52
[2020-08-18] MEDS: ACETAMINOPHEN 325 MG TABLET PO PRN (16:29)
[2020-08-18] MEDS: SUMATRIPTAN 50 MG TABLET PO PRN (17:40)
[2020-08-18] MEDS ORDERED: OMNIPAQUE 350 MG/ML, 100ML BOTTLE ONE (19:00)
[2020-08-18 19:29] VITALS: BP 123/77
[2020-08-18] MEDS: AMITRIPTYLINE 25 MG TABLET PO SCH (21:08)
[2020-08-18] MEDS: ATORVASTATIN 20 MG TABLET PO SCH (21:08)
[2020-08-18] MEDS: HEPARIN 5,000 UNITS/ML, 1ML SQ SCH (21:56)
[2020-08-18 22:57] VITALS: BP 123/81
[2020-08-19] MEDS: HEPARIN 5,000 UNITS/ML, 1ML SQ SCH ×3 (05:23→21:11)
[2020-08-19] MEDS: OMEPRAZOLE 20 MG CAPSULE.DR PO SCH (05:24)
[2020-08-19] MEDS: SUMATRIPTAN 50 MG TABLET PO PRN ×2 (05:44→21:15)
[2020-08-19 08:00] VITALS: BP 127/73
[2020-08-19] MEDS: MAGNESIUM OXIDE 400 MG TABLET PO SCH (08:47)
[2020-08-19] MEDS: SERTRALINE 100MG TABLET PO SCH (08:47)
[2020-08-19] MEDS: GABAPENTIN 300 MG CAPSULE PO SCH ×3 (08:48→21:10)
[2020-08-19] MEDS: SENNA/DOCUSATE TABLET PO SCH (08:48)
[2020-08-19] MEDS: SODIUM CHLORIDE FLUSH 10ML SYR IVF SCH ×2 (08:49→21:11)
[2020-08-19 13:54] VITALS: BP 129/79
[2020-08-19] MEDS: ACETAMINOPHEN 325 MG TABLET PO PRN (15:49)
[2020-08-19 18:28] VITALS: BP 146/87
[2020-08-19] MEDS: ATORVASTATIN 20 MG TABLET PO SCH (21:10)
[2020-08-19] MEDS: AMITRIPTYLINE 25 MG TABLET PO SCH (21:10)
[2020-08-20 00:54] VITALS: BP 122/83
[2020-08-20] MEDS: HEPARIN 5,000 UNITS/ML, 1ML SQ SCH ×3 (05:56→21:10)
[2020-08-20] MEDS: OMEPRAZOLE 20 MG CAPSULE.DR PO SCH (05:56)
[2020-08-20] MEDS: SERTRALINE 100MG TABLET PO SCH (08:54)
[2020-08-20] MEDS: MAGNESIUM OXIDE 400 MG TABLET PO SCH (08:54)
[2020-08-20] MEDS: GABAPENTIN 300 MG CAPSULE PO SCH ×3 (08:55→21:10)
[2020-08-20] MEDS: SENNA/DOCUSATE TABLET PO SCH (08:55)
[2020-08-20] MEDS: SODIUM CHLORIDE FLUSH 10ML SYR IVF SCH ×2 (08:55→21:10)
[2020-08-20] MEDS: SUMATRIPTAN 50 MG TABLET PO PRN ×2 (08:59→21:13)
[2020-08-20 09:16] VITALS: BP 148/89
[2020-08-20 13:36] VITALS: BP 113/16
[2020-08-20 18:09] VITALS: BP 146/92
[2020-08-20] MEDS: AMITRIPTYLINE 25 MG TABLET PO SCH (21:10)
[2020-08-20] MEDS: ATORVASTATIN 20 MG TABLET PO SCH (21:10)
[2020-08-21 00:49] VITALS: BP 136/76
[2020-08-21 06:39] VITALS: BP 129/84
[2020-08-21] MEDS: HEPARIN 5,000 UNITS/ML, 1ML SQ SCH (06:41)
[2020-08-21] MEDS: OMEPRAZOLE 20 MG CAPSULE.DR PO SCH (06:42)
[2020-08-21] MEDS: SODIUM CHLORIDE FLUSH 10ML SYR IVF SCH (09:00)
[2020-08-21] MEDS: SENNA/DOCUSATE TABLET PO SCH (09:00)
[2020-08-21] MEDS ORDERED: SUMATRIPTAN 50 MG TABLET PO ONE (09:00)
[2020-08-21] MEDS: SERTRALINE 100MG TABLET PO SCH (09:03)
[2020-08-21] MEDS: GABAPENTIN 300 MG CAPSULE PO SCH (09:04)
[2020-08-21] MEDS: MAGNESIUM OXIDE 400 MG TABLET PO SCH (09:04)
[2020-08-21 12:15] VITALS: BP 159/85
[2020-08-21] MEDS ORDERED: SUMA50TA3 PO (14:45)
[2020-08-21] MEDS ORDERED: ASPI-963 PO (14:46)
== END 2020-08-21 16:33 | disposition home health service (06) | DRG 102 ==
LOC: ED 14:42 → EDIP 16:22 → OBSVTOIN 16:22 → INTOOBSV 16:22 → 5SO 17:49
PROVIDERS: ADMIT Internal Medicine; ATTEND Hospitalist
DX: G43.109 Migraine with aura, not intractable, without status migrainosus (principal); G93.41 Metabolic encephalopathy; F10.99 Alcohol use, unspecified with unspecified alcohol-induced disorder; J44.9 Chronic obstructive pulmonary disease, unspecified; M48.02 Spinal stenosis, cervical region; E03.9 Hypothyroidism, unspecified; E78.5 Hyperlipidemia, unspecified; F14.10 Cocaine abuse, uncomplicated; F32.9 Major depressive disorder, single episode, unspecified; F41.1 Generalized anxiety disorder; G40.909 Epilepsy, unspecified, not intractable, without status epilepticus; I10 Essential (primary) hypertension; I25.10 Atherosclerotic heart disease of native coronary artery without angina pectoris; I25.2 Old myocardial infarction; Z86.73 Personal history of transient ischemic attack (TIA), and cerebral infarction without residual deficits; Z85.3 Personal history of malignant neoplasm of breast; K21.9 Gastro-esophageal reflux disease without esophagitis; Z90.710 Acquired absence of both cervix and uterus; Z90.49 Acquired absence of other specified parts of digestive tract; Z82.49 Family history of ischemic heart disease and other diseases of the circulatory system; F17.210 Nicotine dependence, cigarettes, uncomplicated; Y90.9 Presence of alcohol in blood, level not specified
CPT/HCPCS: 36415; 70450; 70496; 70498; 70551; 71045; 72127; 80047; 80053; 80061; 80307; 80320; 81003; 82140; 82962; 83036; 83605; 84443; 85025; 85610; 93005; 93306; G0378; J1644; Q9967; 92523-GN; G0480

== ENCOUNTER → 2020-09-26 | Outpatient (CLI) | payer MEDICARE, MEDICAID ==
[~2020-09-26] MED LIST changes: +ASPI-963 PO; +CEFD300C37 PO; -OMEP40CA42 PO; +OMEP40CA8 PO; +SUMA50TA3 PO
[2020-09-26 10:28] LABS: MEAN CORPUSCULAR HEMOGLOBIN 30.6 pg (27.0-34.8); MEAN CORPUSCULAR HGB CONC 33.8 g/dL (32.4-35.8); MEAN PLATELET VOLUME 6.2 fL (7.4-10.4); PLATELET COUNT 437 x10^3/uL (130-400); RED CELL DISTRIBUTION WIDTH 14.2 % (9.6-15.2)
[2020-09-26 10:41] LABS: ALANINE AMINOTRANSFERASE 15 U/L (12-78); ALBUMIN 3.5 g/dL (3.4-5.0); ANION GAP 8 mmol/L (5-15); CALCIUM 8.3 mg/dL (8.5-10.1); CHLORIDE 108 mmol/L (98-107); CHOLESTEROL, TOTAL 224 mg/dL (140-239); CREATININE 0.82 mg/dL (0.55-1.02)
[2020-09-26 10:43] LABS: ALKALINE PHOSPHATASE 104 U/L (45-117); BILIRUBIN,TOTAL 0.6 mg/dL (0.2-1.0); CHOL/HDL RATIO 3.7; HDL CHOL % 27 % (28-40); HDL CHOLESTEROL (DIRECT) 61 mg/dL (40-60); LDL CHOLESTEROL,CALCULATED 134 mg/dL (54-169); LDL/HDL RATIO 2.2 (0.5-3.0); TOTAL PROTEIN 7.3 g/dL (6.4-8.2); TRIGLYCERIDES 144 mg/dL (50-200); VLDL CHOLESTEROL 29 mg/dL (0-25)
[2020-09-26 11:04] LABS: <PLATELET ESTIMATE> INCREASED; <PLT MORPHOLOGY> NORMAL PLT MORPH; <RBC MORPHOLOGY> NORMAL; BASOS#(MANUAL) 0.07 x10^3/uL (0-0.1); BASOS% (MANUAL) 1 % (0-1); EOS#(MANUAL) 0.13 x10^3/uL (0.0-0.4); EOS% (MANUAL) 2 % (1-7); LYMPH#(MANUAL) 2.18 x10^3/uL (1-3.4); LYMPHS% (MANUAL) 33 % (22-44); MONOS% (MANUAL) 3 % (2-9); SEG#(MANUAL) 4.03 x10^3/uL (1.8-6.8); SEGS% (MANUAL) 61 % (42-75)
== END | disposition home or self-care (01) ==
LOC: LAB 10:02
PROVIDERS: ATTEND Internal Medicine Cardiovascular Disease
DX: D68.59 Other primary thrombophilia (principal); I10 Essential (primary) hypertension; R73.9 Hyperglycemia, unspecified; E78.2 Mixed hyperlipidemia; I42.9 Cardiomyopathy, unspecified; I77.9 Disorder of arteries and arterioles, unspecified; R00.2 Palpitations; R07.89 Other chest pain; F17.210 Nicotine dependence, cigarettes, uncomplicated; F19.20 Other psychoactive substance dependence, uncomplicated
CPT/HCPCS: 36415; 80053; 80061; 82043; 83036; 85025